=== PATIENT | female | born 1970 | race Caucasian/White ===

== ENCOUNTER → 2016-07-03 | Outpatient (CLI) | payer OTHER ==
--- NOTE | 2016-07-03 13:21 | KCIC ---
PROCEDURE MRI lumbar spine without contrast. HISTORY Chronic low back pain radiating up the back for 6 months worse in the last week, pelvic pain TECHNIQUE Sagittal and axial T1 and T2 and sagittal STIR images were acquired of the lumbar spine. Contrast: None COMPARISON None FINDINGS Lumbar vertebral body stature and AP alignment are maintained. There is mild to moderate degenerative disc disease at L4-5 and minimally at L3-4. There is a focus of marrow signal abnormality of the posterior L3 vertebral body which is hyperintense on T2 and STIR sequences, faintly hyperintense on the T1 sequence up to 1 centimeter greatest dimension. There are small more typical appearing hemangiomas of L5 and L2. Conus terminates at the superior aspect of L1. Not fully included, there is probably a retroaortic left renal vein. There is edema about the right L3-4 facet articulations, some edema of the posterior right L4 pedicle and involving the facet articular processes. L3-4: There is anterior annular tear. Spinal canal and neural foramina are adequate. L4-5: There is minimal posterior bulge. There is very mild narrowing of the far left lateral recess. Neural foramina are adequate. L5-S1: Spinal canal and neural foramina are adequate. IMPRESSION 1. There is mild to moderate degenerative disc disease at L4-5 and minimally at L3-4. 2. There is no significant lumbar spinal stenosis or neural foramina compromise, minimal narrowing of the far left lateral recess at L4-5 by minimal disc osteophyte complex and bulge. 3. There is edema about the right L3-4 facet articulations, mild edema of the posterior right L4 pedicle and facet articular processes. Findings may be reactive/degenerative in etiology, sequela of septic arthritis considered less likely in the absence of significant focal fluid in this area. 4. There is a small focus of nonspecific marrow signal abnormality of the L3 vertebral body. This may be due to an atypical hemangioma, considered more likely than more aggressive marrow replacing lesion in a patient this age and especially in the presence of other more typical appearing hemangiomas, assuming no clinical history or suspicion for lesion such as from metastatic disease. Small lesion would be unlikely to be visualized on a bone scan, could be followed up if clinically needed to assess stability such as in 6 months. Electronically signed by: Chito Stanford MD (Jul 03, 2016 13:20:00)
== END | disposition home or self-care (01) ==
LOC: KCIC MRI 12:10
PROVIDERS: ATTEND Family Medicine
DX: M51.36 Other intervertebral disc degeneration, lumbar region (principal); G89.29 Other chronic pain
CPT/HCPCS: 72148

== ENCOUNTER → 2017-04-01 | Outpatient (CLI) | payer OTHER ==
--- NOTE | 2017-04-01 09:51 | KCIC ---
EXAM: Lumbar spine MRI without contrast. HISTORY: Chronic pain. Right lower extremity radiculopathy. TECHNIQUE: Multiplanar, multisequence magnetic resonance imaging of the lumbar spine was performed without contrast. COMPARISON: 07/03/2016 FINDINGS: There is no significant listhesis. The vertebral bodies are normal in height. There is slight disc desiccation at L3-L4 and L4-L5. There are few vertebral body hemangiomas. There is a stable T2 hyperintense and T1 hypointense lesion within the posterior aspect of L3. The conus terminates at L1. There is edema within the right L3 and L4 pedicles, right L3-L4 facet joint, right L3 and L4 lamina and spinous processes. There is a small amount of edema within the surrounding soft tissues. At L1-L2, there is no stenosis. At L2-L3, there is minimal facet arthropathy. There is no stenosis. At L3-L4, there is a left foraminal to extraforaminal disc protrusion superimposed on a disc bulge. There is mild bilateral facet arthropathy. There is abutment of the exiting left L3 nerve root without significant stenosis. At L4-L5, there is a disc bulge and endplate remodeling. There is minimal facet arthropathy. There is abutment of the exiting left L4 nerve root without significant stenosis. At L5-S1, there is no stenosis. IMPRESSION: 1. Multilevel degenerative change of the lumbar spine, described in detail above. This is similar compared to the prior study, resulting in abutment of the exiting left L3 nerve root at L3-L4 and abutment of the exiting left L4 nerve root L4-L5. There is no significant stenosis. 2. Slight interval increase in edema involving the right L3-L4 posterior elements adjacent soft tissues. The slow interval change favors an inflammatory etiology rather than infectious etiologies or changes due to recent instrumentation. The possibility of a superimposed stress reaction is not excluded. 3. Stable rounded T2 hyperintense and T1 hypointense lesion within the L3. The interval stability of this lesion and absence of additional similar lesions favors a benign etiology such as an atypical hemangioma. The superimposed on additional typical appearing osseous hemangiomas within the vertebral column. Electronically signed by: Funmi Hill MD (04/01/2017 9:47 AM) [id number]
== END | disposition home or self-care (01) ==
LOC: KCIC MRI 08:36
PROVIDERS: ATTEND Family Medicine
DX: M54.5 Low back pain (principal); D18.09 Hemangioma of other sites; M54.16 Radiculopathy, lumbar region
CPT/HCPCS: 72148